=== PATIENT | female | born 1995 | race Caucasian/White ===

== ENCOUNTER 2020-08-06 13:58 | Outpatient (REF) | payer OTHER, SELFPAY ==
[2020-08-06 16:31] LABS: MANUAL DIFF FLAG NO
[2020-08-06 16:38] LABS: Basophils Percent Auto 0.5 % (0-2); Eosinophils Absolute Auto 0.1 X10*3/uL (0.0-0.4); Eosinophils Percent Auto 0.9 % (0-4); Hematocrit 41.4 % (37-47); Hemoglobin 13.4 g/dl (12.0-16.0); Imm Gran Abs Auto 0.01 X10*3/uL (0.00-0.03); Imm Gran Pct Auto 0.2 % (0.0-0.4); Lymphocytes Absolute Auto 2.3 X10*3/uL (1.2-4.9); Lymphocytes Percent Auto 35.6 % (20-40); Mean Corpuscular HGB Conc 32.4 g/dl (31.0-35.0); Mean Corpuscular Hemoglobin 26.8 pg (27.0-33.0); Mean Corpuscular Volume 82.8 fL (80-98); Mean Platelet Volume 10.2 fL (9.4-12.3); Monocytes Absolute Auto 0.5 X10*3/uL (0.1-1.2); Monocytes Percent Auto 7.8 % (2-11); Neutrophils Absolute Auto 3.6 X10*3/uL (2.0-8.3); Platelet Count 299 X10*3/uL (160-400); Red Cell Distribution Width 12.8 % (11.0-16.0); White Blood Count 6.6 X10*3/uL (4.8-10.8)
[2020-08-06 17:03] LABS: Alanine Aminotransferase 7 U/L (0-31); Anion Gap 13 (12-20); Aspartate Amino Transferase 14 U/L (5-31); Blood Urea Nitrogen 13 mg/dL (9-16); Calcium 9.5 mg/dL (8.4-10.2); Carbon Dioxide 24 mmol/L (22-29); Chloride 105 mmol/L (96-108); Cholesterol 168 mg/dL; Estimated Glomerular Filt Rate > 60; Glucose Fasting 88 mg/dL (60-99); HDL Cholesterol 47 mg/dL; LDL Cholesterol Calculated 110 mg/dl; Potassium 4.7 mmol/L (3.3-5.1); Sodium 137 mmol/L (135-145); Triglycerides 56 mg/dL
[2020-08-06 17:24] LABS: TSH reflex Free T4 0.45 uIU/mL (0.32-4.0); Vitamin D 25-OH Total 22.4 ng/mL (>30)
[2020-08-06 17:34] LABS: Vitamin B12 282 pg/mL (200-900)
== END 2020-08-06 13:59 | disposition home or self-care (01) ==
LOC: HO.HMGCLDS 13:58
PROVIDERS: PCP Internal Medicine; Visit Provider Internal Medicine
DX: Z00.00 Encounter for general adult medical examination without abnormal findings (principal); Z11.1 Encounter for screening for respiratory tuberculosis; J32.9 Chronic sinusitis, unspecified; R53.83 Other fatigue; R76.11 Nonspecific reaction to tuberculin skin test without active tuberculosis; I10 Essential (primary) hypertension; Z83.49 Family history of other endocrine, nutritional and metabolic diseases
CPT/HCPCS: 36415; 80048; 80061; 82306; 82607; 82746; 84443; 84450; 84460; 85025

== ENCOUNTER 2022-05-22 13:30 | Outpatient (REF) | payer OTHER, SELFPAY ==
[2022-05-22 16:50] LABS: MANUAL DIFF FLAG NO
[2022-05-22 16:54] LABS: Basophils Absolute Auto 0.1 X10*3/uL (0.0-0.2); Basophils Percent Auto 0.7 % (0-2); Eosinophils Absolute Auto 0.1 X10*3/uL (0.0-0.4); Eosinophils Percent Auto 1.3 % (0-4); Hematocrit 40.2 % (37.0-47.0); Hemoglobin 12.8 g/dl (12.0-16.0); Imm Gran Abs Auto 0.02 X10*3/uL (0.00-0.03); Imm Gran Pct Auto 0.3 % (0.0-0.4); Lymphocytes Absolute Auto 2.7 X10*3/uL (1.2-4.9); Mean Corpuscular HGB Conc 31.8 g/dl (31.0-35.0); Mean Corpuscular Hemoglobin 24.2 pg (27.0-33.0); Mean Corpuscular Volume 75.8 fL (80.0-98.0); Mean Platelet Volume 9.8 fL (9.4-12.3); Monocytes Absolute Auto 0.7 X10*3/uL (0.1-1.2); Monocytes Percent Auto 9.9 % (2-11); Neutrophils Absolute Auto 3.6 x10*3/uL (2.0-8.3); Neutrophils Percent Auto 49.8 % (45-73); Platelet Count 383 X10*3/uL (160-400); Red Cell Distribution Width 14.3 % (11.0-16.0); White Blood Count 7.2 X10*3/uL (4.8-10.8)
[2022-05-22 17:28] LABS: Alanine Aminotransferase 12 U/L (0-31); Anion Gap 12 (12-20); Aspartate Amino Transferase 19 U/L (5-31); Blood Urea Nitrogen 12 mg/dL (9-16); Calcium 9.6 mg/dL (8.4-10.2); Carbon Dioxide 26 mmol/L (22-29); Chloride 106 mmol/L (96-108); Cholesterol 173 mg/dL; Estimated Glomerular Filt Rate > 60; Glucose Fasting 86 mg/dL (60-99); HDL Cholesterol 52 mg/dL; LDL Cholesterol Calculated 103 mg/dl; Potassium 4.7 mmol/L (3.3-5.1); Sodium 139 mmol/L (135-145); Triglycerides 91 mg/dL
[2022-05-22 17:58] LABS: Folate 13.3 ng/mL (> or = 4.0); TSH reflex Free T4 1.15 uIU/mL (0.32-4.0); Vitamin B12 366 pg/mL (200-900); Vitamin D 25-OH Total 51.6 ng/mL (>30)
== END 2022-05-22 13:31 | disposition home or self-care (01) ==
LOC: HO.HMGCLDS 13:30
PROVIDERS: PCP Internal Medicine; Visit Provider Internal Medicine
DX: Z00.01 Encounter for general adult medical examination with abnormal findings (principal); R10.13 Epigastric pain; K80.50 Calculus of bile duct without cholangitis or cholecystitis without obstruction; Z83.49 Family history of other endocrine, nutritional and metabolic diseases
CPT/HCPCS: 36415; 80048; 80061; 82306; 82607; 82746; 84443; 84450; 84460; 85025

== ENCOUNTER 2025-01-01 11:20 | Outpatient (REF) | payer OTHER, SELFPAY ==
[2025-01-01 13:29] LABS: Hematocrit 39.3 % (37.0-47.0); Hemoglobin 12.9 g/dl (12.0-16.0)
--- OUTSIDE RECORDS SUMMARY | 2025-01-01 13:55 | XMS_ITS | Clinical Summary ---
Author Organization [facility] Address [address] [place] [address] Care Team Providers Care Manager Publishing Name Role Phone Montse Dillard PA-C Primary Care Provider [phone] Source Comments PLEASE NOTE, if this patient is a minor, it may be UNLAWFUL to discuss sensitive information that is contained in these records (such as FAMILY PLANNING, MENTAL HEALTH or SUBSTANCE ABUSE) with the minor patient's parent or other person without the patient's specific authorization.[facility] Allergies No known active allergies Medications pediatric multivitamin chewable tabletIndications :Routine or child health check Place 1 Tab into mouth, chew and swallow once daily. 30 Tab 5 3 Active ibuprofen (ADVIL,MOTRIN) 200 mg tablet Take 2 Tabs by mouth every 8 (eight) hours as needed for fever or pain. 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 Plantar wart 03/20/2015 Overview (04/15/2015): Seen by nursing informatics specialist 04/02/15 - s/p excision Dysmenorrhea 11/07/2012 Immune to hepatitis B 09/06/2012 Immune to varicella 09/06/2012 Immunizations Immunization Administration Dates Next Due Flu, Preservative Free 05/20/2016 HEP B, PED/ADOL ([id number]-PEDS) 09/06/2012 Hep A, Ped/adol, 2 Dose 02/02/2014,11/07/2012 IPV (IPOL) 10/07/2012,09/06/2012 Influenza Virus Vaccine (FLUMIST), Live Intranas al 02/14/2014,03/16/2013 MENINGOCOCCAL VACCINE,CONJUGATE (NON-INTERFACE) 09/06/2012 MMR (MMR II/Priorix) 10/07/2012,09/06/2012 PPD 07/13/2016,09/24/2014 TDAP 08/11/2016,09/06/2012 Td (adult), 5 Lf tetanus tox oid (Tenivac), preservative free 02/02/2014 Td (adult),2 Lf tetanus toxo id (TDVAX), preservative free 10/07/2012 Varicella (Varivax), Live Vaccine 09/06/2012 Family History Relation Name Status Comments Brother Alive Father Alive Mother Alive Sister 1 Alive Sister 2 Alive Social History Tobacco Use Types Packs/Day Years Used Date Smoking Tobacco: Never Alcohol Use Standard Drinks/Week Comments No 0 (1 standard drink = 0.6 oz pur e alcohol) Social Connections Answer Date Recorded Social Connections and Isolation 0 11/19/2018 Financial Resource Strain Answer Date R ecorded Financial Resource Strain 0 2018 Stress Answer Date Recorded Stress 0 11/19/2018 Physical Activity Answer Date Recorded Physical Activity 0 11/19/2018 Food Insecurity Answer Date Recorded Food 0 11/19/2018 Transportation Needs Answer Date Record ed Transportation 0 11/19/2018 Housing Stability Answer Date Recorded Housing 0 11/19/2018 Safety and Environment Answer Date Kimo rded Safety 0 11/19/2018 Utilities Answer Date Recorded Utilities 0 11/19/2018 Employment Answer Date Recorded Employment 0 11/19/2018 Comments No Sex and Gender Information Value Date Recorded Sex Assigned at Not on file Legal Sex Female 1:02 PM PDT Gender Identity Not on file Sexual Orientation Not on file Last Filed Vital Signs Vital Sign Reading Time Taken Comments Blood Pressure 90/60 05/20/2016 2:54 PM EST Pulse 62 05/20/2016 2:54 PM EST Temperature 37 C (98.6 F) 05/20/2016 2:54 PM EST Respiratory Rate 14 05/20/2016 2:54 PM EST Oxygen Saturation - - Inhaled Oxygen Concentration - - Weight 52.2 kg (115 lb) 05/20/2016 2:54 PM EST Height 154.9 cm (5' 1 ) 05/20/2016 2:54 PM EST Body Mass Index 21.73 05/20/2016 2:54 PM EST Plan of Treatment Not on file Insurance [employer] [place] [address] [facility] [employer] [place] [address] Care Teams Manager Publishing Relationship Specialty Start Date End Date Montse Dillard PA-C [address] [place] [address] PCP - General 05/24/18
--- OUTSIDE RECORDS SUMMARY | 2025-01-01 13:55 | XMS_ITS | Clinical Summary ---
Author Organization [address] Address [address] [place] [phone] Phone Care Team Providers Care Lacquer Sprayer Name Role Phone Elda Bowens MD Primary Care Provider Allergies No known active allergies Medications vit,myriam [id number] 27 mg iron- 1 mg tablet Take 1 tablet by mouth 1 (one) time each day. 90 each 2 4 02/29/20 25 Active famotidine (PEPCID) 20 mg tabletIndication s:Gastroesophage al reflux disease without esophagitis Take 1 tablet (20 mg total) by mouth 2 (two) times a day. 60 tablet 5 10/03/19 26 Active Additional Information Patient not taking.Reported on 11/04/2024 oxyCODONE (OXY-IR) 5 mg immediate release capsuleIndicatio ns:Encounter for staple removal Take 1 capsule (5 mg total) by mouth every 6 (six) hours if needed for severe pain. Max Daily Amount: 20 mg 7 capsule 5 Active Active Problems Problem Noted Date Diagnosed Date Endometritis 11/05/2024 S/P repeat low transverse 10/18/2024 SGA (small for gestational age) 09/11/2024 Overview (10/02/2024): 08/18/2024- Growth at 10%tile, AC at 19%tile- Normal dopplers. Will repeat in 3 weeks 09/08- Growth 8%tile, normal fluid, normal dopplers- repeat 3 weeks- weekly NST recommended- Scheduled 09/26/2024- Growth 14%tile, normal fluid and dopplers. BPP- 11/03, continue with weekly NST History of prior with IUGR Overview (09/11/2024): 28 week US scheduled for growth- Growth at 7%tile, AC at 19%tile- Normal doppler. Likely constitutional rather than true FGR Will repeat growth at 30 weeks. History of 2 sections 04/05/2024 Overview (10/09/2024): Does not want TBL Scheduled for repeat 10/17/24 at 8am Assessment & Plan (04/13/2024 4:40 PM EST): Repeat for 39 weeks. Consider discussing TL. Nausea 09/15/2022 Overview (02/22/2024): Starting to resolve. Resolved Problems Problem Noted Date Diagnosed Date Resolved Date Encounter for staple removal 10/22/2024 12/11/2024 Hx of section 10/17/202412/11 Acute cholecystitis 06/16/2024 06/17/19 25 care, subsequent pr egnancy in first trimester 04/05/2024 12/11/2024 Overview (10/02/2024): 1. [facility] site: [facility]: [address] [place] [address] ([phone]) 2. Delivery site: [facility] 3. Mobile Mommas: No 4. Dating criteria: LMP 5. Blood type: O+ 6. Genetic screening: Date: Result: Panorama: Low risk Horizon: Neg Nuchal: Scheduled- WNL Survey: WNL MSAFP: 6. GBS: Negative Date: 09/26 7. FOB name: Shabbir Ceballos [phone] 8. Plans A. Epidural or other pain management - B. Labor support identified - C. Tdap - Date: 08/14/2024 Flu - Date: D. Breast or Bottle feed: Both Breast and Bottle feeding E. Baby's name - F. Circumcision - 9. Hospital Course: Positive PPD 07/15/2016 06/16/2024 Plantar wart 03/20/2015 06/16/2024 Overview (06/16/2024): Seen by art therapy specialist 04/02/15 - s/p excision Dysmenorrhea 11/07/2012 06/16/2024 Encounters Date Type Department Care Team Description 12/11/2024 1:15 PM EDT Routine Obstetrics and Gynecology - [address] [phone] Yodit Solano CNM state (Primary Dx); control counseling; Breast feeding status of mother; Status post delivery 11/09/2024 1:15 PM EDT Routine Obstetrics & Gynecology - [address] [phone] Claudine Song CNM S/P repeat low transverse (Primary Dx); Visit for wound check 11/04/2024 9:44 PM EDT - 11/06/2024 9:56 AM EDT Hospital Encounter [address] [phone] Arianna De La Rosa MD Discharge Disposition: Home or Self Care 10/27/2024 [place] [facility] - [address] [phone] Yodit Solano CNM 10/22/2024 2:19 PM EDT - 10/22/2024 2:31 PM EDT Hospital Encounter [address] [phone] Gay Young MD Encounter for staple removal (Primary Dx) Discharge Disposition: Home or Self Care 10/17/2024 8:51 AM EDT Anesthesia Event [facility] - [address] [phone] Barry Lomax MD 10/17/2024 8:00 AM EDT - 10/17/2024 9:35 AM EDT Surgery [address] [phone] Gay Young MD SECTION [[id number] (CPT )] 10/17/2024 6:04 AM EDT - 10/19/2024 2:25 PM EDT Hospital Encounter [address] [phone] Arianna De La Rosa MD Bretta, Leigh, MD S/P repeat low transverse (Primary Dx); Hx of section Discharge Disposition: Home or Self Care 10/16/2024 1:00 PM EDT Routine Obstetrics and Gynecology - [address] [phone] SGA (small for gestational age) (Primary Dx); NST (non-stress test) reactive 10/09/2024 1:15 PM EDT Routine Obstetrics and Gynecology - [address] [phone] Yodit Solano CNM care, subsequent in third trimester (Primary Dx); History of 2 sections; 37 weeks gestation of ; NST (non-stress test) reactive 10/02/2024 1:30 PM EDT Routine Obstetrics and Gynecology - [address] [phone] Yodit Solano CNM care, subsequent in third trimester (Primary Dx); 36 weeks gestation of ; History of 2 sections; SGA (small for gestational age); NST (non-stress test) reactive; Gastroesophageal reflux disease without esophagitis from Last 3 Months Immunizations Immunization Administration Dates Next Due Tdap Tetanus diptheria acell ular pertussis (Boostrix; Adacel) 7yo and older 08/14/2024,01/22/2023,12/04/2021 Surgical History Surgery Date Site/Laterality Comments OTHER SURGICAL HISTORY 01/2021 PROCEDURE: MT PRTL HYMENECTOMY/REVJ HYMENAL RING; COMMENT: hymen removal by physician in [place] prior to marriage. 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 Endometritis 10/2024 s/p c-secton on 10/17/2024 Family History Medical History Relation Name Comments No Known Problems Brother No Known Problems Daughter 1 No Known Problems Father Other: dies of nataural causes Maternal Grandfather Hypertension Maternal Grandmother Hypertension Mother Other: from natural causes Paternal Grandf ather No Known Problems Paternal Grandmother No Known Problems Sister 1 No Known Problems Sister 2 Breast cancer Neg Hx Ovarian cancer Neg Hx Uterine cancer Neg Hx Relation Name Status Comments Brother Alive Daughter 1 Daughter 2 Alive Father Alive Maternal Grandfather Maternal Grandmother Alive Mother Alive Paternal Grandfather Paternal Grandmother Alive Sister 1 Alive Sister 2 Alive Social History Tobacco Use Types Packs/Day Years Used Date Smoking Tobacco: Never Smokeless Tobacco: Never Alcohol Use Standard Drinks/Week Comments Never 0 (1 standard drink = 0.6 oz pur e alcohol) Housing Instability Answer Date Recorde d Are you worried that in the next 2 months you may not have stable housing? No 10/18/2024 Food Access & Nutrition Answer Date Rec orded Do you have access to a vari ety of food including fruits and vegetables? Yes 10/18/2024 Health Literacy Answer Date Recorded How often do you need to hav e someone help you when you read instructions, pamphlets, or other written material from your doctor or pharmacy? Never 10/18/2024 Caregiver: How often do you need to have someone help you when you read instructions, pamphlets, or other written material from your doctor or pharmacy? Not on file 10/18/2024 Financial Risk Answer Date Recorded How hard is it for you to pa y for the very basics like food, housing, medical care, and air conditioning / heating? Not very hard 10/18/2024 Transportation Answer Date Recorded Has the lack of transportati on kept you from meetings, work, or from getting things needed for daily living? No Has the lack of transportati on kept you from medical appointments or from getting medications? No 10/18/2024 Social Isolation Answer Date Recorded How often do you feel lonely or isolated from th ose around you? Never 10/17/2024 Food Risk Answer Date Recorded Within the past 12 months we worried whether our food would run out before we got money to buy more. Never true 10/18/2024 Within the past 12 months th e food we bought just didn't last and we didn't have money to get more. Never true 10/18/2024 Dependent Care Answer Date Recorded Do you need help finding or paying for care for your loved ones. For example, child and family services worker or elderly care for an older adult? No 10/18/2024 Education Answer Date Recorded Do you think completing more education or training, like finishing a GED, going to college, or learning a trade, would be helpful for you? N/A 10/18/2024 Employment and Income Answer Date Recor ded During the last four weeks, have you been actively looking for work? No 10/18/2024 Living Situation Answer Date Recorded What is your living situation? Unrecognized valu e 10/18/2024 Interpersonal Safety Answer Date Record ed Physical Abuse Unrecognized value 11/04/2024 Verbal Abuse Unrecognized value 11/04/2024 Comments No Sex and Gender Information Value Date Recorded Sex Assigned at Not on file Legal Sex Female 9:39 AM EST Gender Identity Not on file Sexual Orientation Not on file Obstetrics History Para Term AB IAB SAB Ectopic Multiple Livin g Live Births 3 3 3 0 3 3 Date Outcome GA Total Labor Labor/2nd/3rd Weight Sex Type Anes PTL David A1 A5 Name Clin Term 3345 g (118 oz) F CS-LT ranv Spinal Livin g Complications:None,Breech pr esentation of fetus 2023 Term 2722 g (96 oz) F CS-LT ranv Spinal Livin g Complications:None 2024 Term 39w 0d 0h 01m 0h 01m 2770 g (97.7 oz) M CS-LT ranv Spinal Livin g 9 [address] Karan ward MD Complications:None Delivery Location:[facility] ([facility]) Summary Episode Dates Number of Fetuses Estimated Date of Delivery 02/29/2024 - Present (01/01/2025) 1 10/24/2024 (set by Grisel Bond RN on 04/05/2024 based on Last Menstrual Period on 01/18/2024 (Exact Date)) Dating Summary Based On KIRA GA Diff Last Menstrual Period on 01/18/2024 (Exact Date) 10/24/2024 Working Alternate KIAR Entry 10/24/2024 Same Comment:Date entered prior t o episode creation Overview and Plan :[facility] Delivery Plans Post-Delivery Plans Planned delivery method: Feedin g intentions:Breast and Formula Feeding Planned delivery location:[facility] Circumcis ion requested:Provider Performed Acceptable blood products:All Vitals Pregravid Weight Height TWG (As of 01/01/2025) Pregrav id BMI 1.524 m (60 ) Date GA Fund Present FHR Mvmt BP Weight Edema Alb Glu Ket Dil/ Eff/Sta 5 39w0d Inpatient data not displayed here. See encounter summary. 5 39w0d Inpatient data not displayed here. See encounter summary. 5 39w0d Inpatient data not displayed here. See encounter summary. Notes Progress Notes - Routine Pre talia - 12/11/2024 - GA:39w0d 12/11/2024 - 39w0d - Yodit Solano CNM Visit Encounter Date: 12/11/2024 Chief Complaint: Chief Complaint Patient presents with Care Subjective: Neeru Ugalde is a 29 y.o. who presents for visit. She is 7 weeks s/p repeat delivery. She is formula and breast feeding without difficulty. Lochia stopped. Has not yet had intercourse or menses. Mood is good, EPDS 0. Desires Coper IUD for contraception. was complicated by hx of previous and SGA. Review of Systems: As in HPI. All other systems reviewed and negative. Patient Active Problem List Diagnosis Nausea History of 2 sections History of prior with IUGR SGA (small for gestational age) S/P repeat low transverse Endometritis OB History Para Term AB Living 3 3 3 3 SAB IAB Ectopic Multiple Live Births 0 3 # Outcome Date GA Lbr Derick/2nd Weight Sex Type Anes PTL Lv 3 Term 10/17/24 39w0d 2770 g (97.7 oz) M CS-LTranv Spinal DAVID 2 Term 04/05/23 2722 g (96 oz) F CS-LTranv Spinal DAVID 1 Term 11/2021 3345 g (118 oz) F CS-LTranv Spinal DAVID Complications: Breech presentation of fetus Past Medical History: Diagnosis Date Acute cholecystitis 06/16/2024 Anemia Dysmenorrhea 11/07/2012 Endometritis 10/2024 s/p c-secton on 10/17/2024 Migraine Patient denies medical problems DX:Patient denies medical problems Plantar wart 03/20/2015 Seen by art therapy specialist 04/02/15 - s/p excision 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 Other Children: [address]:YES Pets:NO Occupation: stay at home mom FOB occupation: not working Smoker:NO Pt Ethnic Ba ckground:/White - [facility] FOB Ethnic Background:/White - [employer] Alberto Planned :YES Lives with: lives with mother, father, sisters, and brothers. (FOB/- Shabbir Diallocallie: currently still in [place]) Other Children: 0 [place] [address] system in [address]:YES Pets:NO Occupation: not working FOB occupation: Delivery in [place] Smoker:YES-vapes occasionally Pt Ethnic Background: FOB Ethnic Background:Tajik- Prior to Admission medications Medication Sig Start Date End Date Taking? Authorizing Provider vit,myriam [id number] 27 mg iron- 1 mg tablet Take 1 tablet by mouth 1 (one) time each day. 02/29/24 02/28/25 Yes Giovanna Steven MD famotidine (PEPCID) 20 mg tablet Take 1 tablet (20 mg total) by mouth 2 (two) times a day. Patient not taking: Reported on 11/04/2024 10/02/24 10/02/25 Yodit Solano CNM oxyCODONE (OXY-IR) 5 mg immediate release capsule Take 1 capsule (5 mg total) by mouth every 6 (six) hours if needed for severe pain. Max Daily Amount: 20 mg 10/22/24 Gay Young MD No Known Allergies Objective: Vitals: 12/11/24 1311 BP: 115/69 Weight: 65.3 kg (144 lb) Gen: Alert, cooperative. Well-appearing on today's exam Cardiovascular: regular rate and rhythm, no m/r/g Lung: clear to auscultation bilaterally, no wheezing, ronchi, normal respiratory effort Breast: Normal appearance, no masses or tenderness, no nipple retraction or dimpling bilaterally. No axillary or supraclavicular adenopathy Abdomen: scar well healed, C/D and well approximated. Abdomen soft, non-tender. No masses palpable, no organomegaly. Lymph: No inguinal lymphadenopathy. Extremities: no calf tenderness or edema, atraumatic without deformity Skin: Skin color, texture, turgor normal. No rashes or lesions Psych: Mood and affect appropriate. Pelvic: External Genitalia: Normal appearance, without lesions Vagina: Normal appearance. Mucosa is pink, normal rugae, no abnormal discharge. No lesions. Cervix: Normal appearance, without discharge or lesions. Uterus: Normal size and shape. Non-tender Adnexa: No adnexal masses, tenderness bilaterally. Assessment/Plan: 29 y.o. with: 1. Contraception-will return for Paragard IUD insertion. R/B reviewed, condoms until then. 2. Discussed nutrition, exercise, sexual activity, control methods, wood cabinetmaker care, S&S of PPD and referral information. 3. RTO for IUD insertion and AE in one year Yodit Solano CNM Progress Notes - Routine Pre talia - 11/09/2024 - GA:39w0d 11/09/2024 - 39w0d - Claudine Song CNM Neeru Boonekaren Pt present for 2 wks incision check She had repeat on 10/17/2024 Any complaints slight tenderness at site She was re-admitted to hosp on 11/04 for endometritis, started on abx and no longer breast feeding , because she needs to pump/dump. Not interested in re- establishing breast milk supply due to busy family . Denies any abd pain, erythema, abnormal discharge from incision Scant lochia, no vaginal discharge or foul odor. --She is breast feeding and bottle feeding with no issues. OB History Para Term AB Living 3 3 3 3 SAB IAB Ectopic Multiple Live Births 0 3 # Outcome Date GA Lbr Derick/2nd Weight Sex Type Anes PTL Lv 3 Term 10/17/24 39w0d 2770 g M CS-LTranv Spinal DAVID 2 Term 04/05/23 2722 g F CS-LTranv Spinal DAVID 1 Term 11/2021 3345 g F CS-LTranv Spinal DAVID Complications: Breech presentation of fetus ROS : GENERAL: Negative for malaise, significant weight loss and fever and No malaise, significant weight loss or fever RESPIRATORY: No cough, wheezing or shortness of breath CARDIOVASCULAR: No chest pain, leg swelling or palpitations BREAST: no lumps, discharge, pain or change in skin GI: No abdominal discomfort, blood in stools or black stools : No dysuria, frequency or incontinence QUALIFICATIONS EXAMINER: SEE HPI and No abnormal vaginal bleeding or abnormal vaginal discharge. MUSCULOSKELETAL: Negative for joint pain or swelling, back pain, and muscle pain., No joint pain or swelling, back pain, or muscle pain. SKIN: No lesions, rash or itching PSYCH: No sleep disturbance, mood disorder or recent psychosocial stressors. NEURO: No persistent headache, syncope, seizures, weakness or numbness Visit Vitals LMP 01/18/2024 (Exact Date) OB Status Recent Smoking Status Never ----incision D/C/I , Steris intact ----Abd soft, NT, ND w no rebound or guarding. APPEARANCE: No apparent distress cooperative. LUNG: Normal respiratory effort NEURO: Awake, alert and oriented x 3 with symmetrical reflexes SKIN: Skin color, texture, turgor normal. No rashes or lesions. Encounter Diagnoses Name Primary? S/P repeat low transverse Yes Visit for wound check Plan: Cont restrictions Newspaper Carrier on warning signs to call. F/U PP visit Claudine Song CNM Progress Notes - Hospital En counter - 10/22/2024 - GA:39w0d 10/22/2024 - w - Gay Young MD Neeru is a 28-year-old G3, P3 who is status post section on October 17, 2024. She presents to triage today for removal of her galdino. She states she is doing well although her incision does burn at its lateral aspects she is also requesting a couple more oxycodone. O: Awake alert orientated no acute distress Respirations even and unlabored Abdomen soft nontender nondistended Incision clean dry and intact, galdino removed without difficulty Steri-Strips placed Lower extremities nontender no edema A/P 28-year-old young lady who is postop day #5 status post section who presents for removal of her galdino. She is stable for discharge. An additional prescription for #7 oxycodone sent to pharmacy. Patient to follow-up as previously scheduled with [facility] Progress Notes - Hospital En counter - 10/19/2024 - GA:39w0d 10/18/2024 - 39w0d - Gay Young MD Progress Note Subjective Neeru Ugalde is a 28 y.o., , with an Estimated Date of Delivery of 10/24/24, who delivered at 39w0d gestation and is now 1 days . Patient's delivery was , Low Transverse, with the following labor and delivery complications, None. Her bleeding is Scant.The patients BP have been running low since surgery, she is clinically stable and appears to run a low BP as baseline. The patient denies emotional concerns today. The patient's pain is moderatly controlled with current medications, is ambulating well, is tolerating a Adult diet [facility]; General; Regular, is passing flatus, and has not had a BM. Patient is . Patient reports no breast or nursing problems. Objective Allergies: Patient has no known allergies. Recent Vital Signs: 92/52 76 36.6 C (97.8 F) 18 152.4 cm (60 ) 70.8 kg (156 lb) Body mass index is 30.47 kg/m . BP & Temp Min/Max Last 24 Hours: BP Min: 86/59 Min taken time: 10/17/24 1900 Max: 103/63 Max taken time: 10/17/24 1616 Temp Av.5 C (97.7 F) Min: 36.3 C (97.3 F) Min taken time: 10/17/24 1616 Max: 36.9 C (98.4 F) Max taken time: 10/18/24 0111 Intake/Output: Intake/Output Summary (Last 24 hours) at 10/18/2024 0711 Last data filed at 10/17/2024 2000 Gross per 24 hour Intake 800 ml Output 2045 ml Net -1245 ml Physical Exam: Awake alert and orientated Resp even and unlabored Abd soft, approp tender, ND Dressing CDI Ext NT Lab Results: Recent Results (from the past 48 hours) Type and screen Collection Time: 10/17/24 7:14 AM Result Value Ref Range ABO Group O Rh Type Positive Antibody Screen Negative Treponema pallidum antibody with reflex to RPR and particle agglutination Collection Time: 10/17/24 7:14 AM Result Value Ref Range T. Pallidum Antibodies Negative Negative CBC auto differential Collection Time: 10/17/24 7:14 AM Result Value Ref Range WBC 10.5 4.8 - 10.8 K/mcL RBC 4.40 3.80 - 4.80 M/mcL Hemoglobin 11.8 11.5 - 16.0 g/dL Hematocrit 36.5 35.0 - 47.0 % MCV 83.0 79.0 - 98.0 FL MCH 26.8 (L) 27.0 - 32.0 pcg MCHC 32.3 32.0 - 37.0 g/dL RDW 15.5 (H) 11.0 - 15.0 % Platelets 209 130 - 400 K/mcL MPV 9.5 7.0 - 11.0 FL NRBC 0.0 <1.0 % NRBC Absolute 0.00 <0.10 K/mcL Neutrophils Relative 68.3 % Lymphocytes Relative 21.3 % Monocytes Relative 8.6 % Eosinophils Relative 0.9 % Basophils Relative 0.3 % Immature Granulocytes Relative 0.6 % Neutrophils Absolute 7.19 (H) 1.50 - 7.00 K/mcL Lymphocytes Absolute 2.25 1.00 - 5.00 K/mcL Monocytes Absolute 0.91 0.20 - 1.00 K/mcL Eosinophils Absolute 0.10 0.00 - 0.50 K/mcL Basophils Absolute 0.03 0.00 - 0.20 K/mcL Immature Granulocytes Absolute 0.06 (H) 0.00 - 0.03 K/mcL Assessment/Plan Principal Problem: Hx of section Brief Delivery Details: section delivery Routine postop and care. Patient is currently breastfeedingThe patient's blood type is O Positive. The baby's blood type is O Positive. Rhogam is not indicated. -Advance care as tolerated -Encourage ambulation -Remove Drsg today after shower course: no complications Assessment: doing well care plan: See orders and Patient Instructions Progress Notes - Routine Pre talia - 10/16/2024 - GA:38w6d 10/16/2024 - 38w6d - Jenifer Benavides CNM OB NST SGA Baseline: 145 Variability: moderate Accels: 2 in 20mins up to 40mins Decels: Absent Ctx: none Findings: reactive Follow-up: weekly Jenifer Benavides CNM Progress Notes - Routine Pre - 10/09/2024 - GA:37w6d 10/09/2024 - 37w - Yodit Solano CNM OB Visit: Vitals BP: 96/69 Weight: 71.6 kg (157 lb 12.8 oz) Assessment Heart Rate: 130 Fundal Height (cm): 36 cm Movement: Present Presentation: Cephalic Vaginal Drainage Leaking Fluid: No 28 y.o. old female at 37w6d. Doing well. Appropriate FM. No LOF/VB some irregular contractions. Much improvement of reflux with Pepcid. Her only new concern is none. Otherwise healthy . Her BP is reviewed and is Normal. This patient does not require a urine drug screen. NST reactive. She is scheduled for repeat on 10/17. She will come in next Wednesday for NST. Signs and symptoms of labor reviewed including reasons to call triage. Problem List reviewed and updated. RTO 1 weeks. NST- 130/mod/+accels, no decels No contractions Reactive Repeat in 1 week Yodit Solano CNM on 10/09/2024 at 5:45 PM EDT Progress Notes - Routine Pre talia - 10/02/2024 - GA:36w6d 10/02/2024 - 36wd - Yodit Solano CNM OB Visit: Vitals BP: 107/70 Weight: 70.6 kg (155 lb 9.6 oz) Assessment Heart Rate: 135 Fundal Height (cm): 35 cm Movement: Present Presentation: Cephalic Vaginal Drainage Leaking Fluid: No 28 y.o. old female at 36w6d. Doing well. Appropriate FM. No LOF/VB/cramping. Her only new concern is acid reflux- tums not helping. Reviewed Pepcid and diet restrictions. Otherwise healthy . Her BP is reviewed and is Normal. Tdap was offered and not indicated at today's visit. This patient has received Tdap during this . This patient does not require a urine drug screen. This patient's VTE risk status is low. GBS is negative. NST today reactive. Has repeat scheduled for 10/16. Recent normal growth at 14%tile, normal dopplers. Signs and symptoms of labor reviewed including reasons to call triage. Problem List reviewed and updated. RTO 1 weeks. NST- Baseline- 135 Variability- Mod Accels- Positive Decels- none Ctx- irregular Results- Reactive Repeat weekly Yodit Solano CNM on 10/02/2024 at 2:52 PM EDT Progress Notes - Routine Pre - 09/26/2024 - GA:36w0d 09/26/2024 - 36w0d - Yodit Solano CNM OB Visit: Vitals BP: 92/70 Weight: 69.9 kg (154 lb) Assessment Heart Rate: 140 Fundal Height (cm): 34 cm Movement: Present Presentation: Cephalic Vaginal Drainage Leaking Fluid: No 28 y.o. old female at 36w0d. Doing well. Appropriate FM. No LOF/VB/cramping. Her only new concern is has occasional LE pain to bilateral legs. No swelling or discoloration on exam today. Encouraged increase magnesium and hydration in diet. Has this pain intermittently for past few months. Had normal bilateral LE dopplers- comfort measures reviewed. Will continue to monitor- warning signs reviewed and reasons to call back. Taking PNV. She is being followed for SGA- has growth Scan scheduled for today. NST today is reactive. Otherwise healthy . Her BP is reviewed and is Normal. Tdap was offered and not indicated at today's visit. This patient has received Tdap during this . This patient does not require a urine drug screen. GBS collected. This patient's VTE risk status is low. Signs and symptoms of labor reviewed including reasons to call triage. Needs repeat scheduled- will await for growth US to verify if delivery at 39 weeks is ok or if needs sooner. Problem List reviewed and updated. RTO 1 weeks. Patient is planning to breast feed. Benefits of breast feeding were discussed at this visit. NST- Baseline- 140, mod variability, +accels, variable x1, contractions none Reactive NST with 1 variable decel with quick recovery to baseline. BPP and growth scan today. Yodit Solano CNM on 09/26/2024 at 1:58 PM EDT Progress Notes - Routine Pre talia - 09/20/2024 - GA:35w1d 09/20/2024 - 35w1d - Jenifer Benavides CNM OB NST SGA Baseline: un able to interpret Variability: moderate Accels: un able to interpret Decels: un able to interpret Ctx: none Findings: indeterminant Follow-up: stat bpp ordered Jenifer Benavides CNM Progress Notes - Routine Pre - 09/11/2024 - GA:33w6d 09/11/2024 - 33w6d - Yodit Solano CNM OB Visit: Vitals BP: 120/71 Weight: 69.9 kg (154 lb) Assessment Heart Rate: 150 Fundal Height (cm): 32 cm Movement: Present Presentation: Cephalic Vaginal Drainage Leaking Fluid: No 28 y.o. old female at 33w6d. Doing well. Appropriate FM. No LOF/VB/or contractions. Her only new concern is None. Taking PNV. Was feeling sick to her stomach this morning. Otherwise healthy . Recent growth US on 09/06- baby was at 8%tile, AC at 16%tile, normal doppler, normal fluid. Will repeat growth in 3 weeks. Needs weekly NST per [facility] recommendations. NST today non reactive. Her BP is reviewed and is Normal. This patient does not require a urine drug screen. Needs repeat scheduled for 39 weeks. Signs and symptoms of labor reviewed including reasons to call triage. Problem List reviewed and updated. RTO 2 weeks for SOPHIA and weekly for NST. NST Baseline- 140-150 Accels- none Decels- none Ctx- None Results- Non reactive Recommendation- BPP ordered. Results pending. Yodit Solano CNM on 09/11/2024 at 5:27 PM EDT Progress Notes - Routine Pre - 08/14/2024 - GA:29w6d 08/14/2024 - 29w6d - Yodit Solano CNM OB Visit: Vitals BP: 107/68 Weight: 69.9 kg (154 lb) Assessment Heart Rate: 140 Fundal Height (cm): 29 cm Movement: Present Vaginal Drainage Leaking Fluid: No 28 y.o. old female at 29w6d. Doing well. Appropriate FM. No LOF/VB/cramping. Her only new concern is none. Had a recent growth US that demonstrated normal doppler and 7th %tile but AC at 19%tile. She has repeat growth US on 08/18. Otherwise healthy . Her BP is reviewed and is Normal. Tdap was offered and accepted. This patient has not received Tdap during this . This patient has received syphilis testing during this . Labs pending. This patient does not require a urine drug screen. Desires Tubal: No . Signs and symptoms of labor reviewed including reasons to call triage. Problem List reviewed and updated. RTO 4 weeks. [place] Depression Scale: In the Past 7 Days I have been able to laugh and see the funny side of things.: As much as I always could I have looked forward with enjoyment to things.: As much as I ever did I have blamed myself unnecessarily when things went wrong.: No, never I have been anxious or worried for no good reason.: No, not at all I have felt scared or panicky for no good reason.: No, not much Things have been getting on top of me.: No, most of the time I have coped quite well I have been so unhappy that I have had difficulty sleeping.: Not at all I have felt sad or miserable.: No, not at all I have been so unhappy that I have been crying.: No, never The thought of harming myself has occurred to me.: Never [place] Depression Scale Total: 2 Yodit Solano CNM on 08/14/2024 at 2:10 PM EDT Progress Notes - Routine Pre talia - 07/13/2024 - GA:25w2d 07/13/2024 - 25w2d - Yodit Solano CNM OB Visit: Vitals BP: 99/69 Weight: 68.9 kg Assessment Heart Rate: 150 Fundal Height (cm): 25 cm Movement: Present Vaginal Drainage Leaking Fluid: No 28 y.o. old female at 25w2d. Doing well. Pos FM. No LOF/VB/cramping. Her only new concern is None. Taking PNV. Otherwise healthy . Her BP is reviewed and is Normal. She does not require a urine drug screen. 28 weeks labs ordered. She has 28 week growth US. Signs and symptoms of labor reviewed including reasons to call triage. Problem List reviewed and updated. RTO 4 weeks. Patient is planning to breast feed. Benefits of breast feeding were discussed at this visit. Yodit Solano CNM on 07/13/2024 at 1:43 PM EDT Progress Notes - Routine Pre talia - 06/14/2024 - GA:21w1d 06/14/2024 - 21w1d - Yodit Solano CNM OB Visit: Vitals BP: 118/70 Weight: 67.1 kg (148 lb) Assessment Heart Rate: 150 Fundal Height (cm): 20 cm Movement: Present Vaginal Drainage Leaking Fluid: No 28 y.o. old female at 21w1d. Doing well. Good FM. No LOF/VB/cramping. Her only new concern is continues to experience bilateral calf pain, pulsing sensation- worst at night time. No discoloration to LE, no varicose veins. Normal pedal pulses. Will send for BLE dopplers to rule out DVT and if all normal she can use compression stockings. She also reports right sciatica pain that radiates down her leg. Will order PT referral. Otherwise healthy . FAS done today and pending. Her BP is reviewed and is Normal. She does not require a urine drug screen. Signs and symptoms of labor reviewed including reasons to call triage. Problem List reviewed and updated. RTO 4 weeks. Yodit Solano CNM on 06/14/2024 at 3:39 PM EDT Progress Notes - Routine Pre talia - 05/15/2024 - GA:16w6d 05/15/2024 - wd - Yodit Solano CNM OB Visit: Vitals BP: 101/65 Weight: 66.8 kg (147 lb 3.2 oz) Assessment Heart Rate: 150 Movement: Present Vaginal Drainage Leaking Fluid: No 28 y.o. old female at 16w6d. Doing well. Positive FM. No LOF/VB/ctx. Some groin pain and low back pain. Pain to BLE at night time, Tylenol helps. Some acid reflux, not taking anything for this. We reviewed comfort measures for all. LE with no edema, discoloration or pain on exam. Pos pedal pulses. Taking PNV. Otherwise healthy . Her BP is reviewed and is Normal. FH- 2fb below U- S=D, FHT- 150. Aneuploidy screening reviewed; it is Normal. MSAFP ordered. She does not require a urine drug screen. Has upcoming FAS. Signs and symptoms of labor reviewed including reasons to call triage. Problem List reviewed and updated. RTO 4 weeks. Yodit Solano CNM on 05/15/2024 at 4:49 PM EST Progress Notes - Initial Pre talia - 04/13/2024 - GA:12w2d 04/13/2024 - 12w2d - Giovanna Jones MD OB 12 week appt IP: S: Neeru is a 28 y.o. year old here for IP visit at 12 2/7 weeks. Her is planned. She and the father of the baby are happy. Patient's last menstrual period was 01/18/2024 (exact date). She is certain of her LMP with regular cycles. is currently dated by LMP only. US today after this appt. Having a boy. She is feeling ok. She is no drinking much water. Trying. Gets dry. Cramps in legs at night. N/V has stopped. She denies vaginal bleeding or cramping. Ongoing back pain. Had throughout last and between. O: Blood pressure 106/74, pulse 80, resp. rate 16, weight 66.2 kg (146 lb), last menstrual period 01/18/2024. See OB physical and labs. Vitals BP: 106/74 Weight: 66.2 kg (146 lb) Assessment Heart Rate: 150 Fundal Height (cm): 12 cm Pap 2021 neg No results found for: ABORH Lab Results Component Value Date RH Positive 04/05/2024 A: at 12w2d weeks gestation. 1. care, subsequent in first trimester 2. Screening for cervical cancer 3. Screen for STD (sexually transmitted disease) 4. History of 2 sections P: Pap obtained today. Genprobe obtained today. Oriented to THoNE MG and anticipated course. Discussed collaborative practice and [facility] delivery. Reviewed healthy eating and normal weight gain in . Encouraged patient to push PO fluids. Counseled about warning signs of the first trimester and how to contact caregivers non medical provider. Discussed the benefits of breast feeding and strongly encouraged to consider this. Counseled regarding the diagnosis of anomalies. She was offered a referral to maternal medicine for nuchal lucency/Cozad testing. She already accepted the referral. RTO 4 weeks. The patient does not require anesthesia consult. This patient's VTE risk status is low. [place] Depression Scale: In the Past 7 Days I have been able to laugh and see the funny side of things.: As much as I always could I have looked forward with enjoyment to things.: As much as I ever did I have blamed myself unnecessarily when things went wrong.: Not very often I have been anxious or worried for no good reason.: No, not at all I have felt scared or panicky for no good reason.: No, not at all Things have been getting on top of me.: No, most of the time I have coped quite well I have been so unhappy that I have had difficulty sleeping.: Not at all I have felt sad or miserable.: No, not at all I have been so unhappy that I have been crying.: No, never The thought of harming myself has occurred to me.: Never [place] Depression Scale Total: 2 [place] SCREENING CHARGE (Clinic Only): [id number] Giovanna Steven MD on 04/13/2024 at 4:40 PM EST Progress Notes - Clinical [place] pport - 04/05/2024 - GA:11w1d 04/05/2024 - 11w1d - Grisel Bond RN Neeru Ugalde is a 28 y.o. old female at 11w1d. This is Planned. The patient feels happy about the . The FOB is supportive. Patient's last menstrual period was Patient's last menstrual period was 01/18/2024 (exact date). (exact date)., which would make her currently 11w1d with an Estimated Date of Delivery: 10/24/24. She is certain of her date. An ultrasound has not been ordered to confirm dating Patient has significant history of: (classical vs low transverse) OB Past Medical History: Have you had or do you currently have: Diabetes? No Hypertension? No Heart disease, Mitral valve Prolapse, or Rheumatic fever? No An Autoimmune disease such as Lupus or Rheumatoid Arthritis? No Epilepsy, Seizures, or Spells? No Migraine Headaches? Not migraines but headaches-taking tylenol Stroke or loss of function or sensation? No Additional Questions: Have you ever been treated for anxiety and/or depression? No Are you having problems with crying spells or loss of self-esteem? No Have you ever required psychiatric care? No Have you ever had hepatitis, liver disease or jaundice? No Have you ever been treated for blood clots in your veins, deep venous thrombosis, inflammation in the veins, thrombosis, phlebitis, pulmonary embolism or varicosities? No Have you had excessive bleeding after surgery or dental work? No Do you bleed more than other women after a cut or scratch? NO Do you have a history of anemia? Yes-with previous Have you ever had Thyroid problems or taken Thyroid medications? No Do you have any other Endocrine Problems (ie. PCOS)? No Have you ever been in a major accident or suffered serious trauma? No Within the last year, has anyone hit, slapped, kicked or otherwise hurt you? No In the last year, has anyone forced you to have sex when you didn't want to? No Do you feel safe at home? Yes Have you ever received a blood transfusion? No Would you refuse a blood transfusion if a doctor judged to be medically necessary? No Would you rather than receive a blood transfusion? No If you answered yes to the above questions, is this for sikh reasons? No Do you know what your blood type is or if you are Rh Negative? No Have you ever had abnormal antibodies in your blood? No Have you ever had asthma? No Have you every had Tuberculosis? No Have you ever had any breast problems? No Have you ever breast fed? No Have you ever had any gynecological surgical procedures such as cervical conization, LEEP procedure, Laser treatment, cryosurgery of the cervix or dilation and curettage, etc? No Have you had any other surgical procedures?YES- gallbladder surgery Have you ever been hospitalized overnight for a non-surgical reason excluding normal delivery? No Have you ever had anesthesia complications? No Have you ever had an abnormal pap smear? No Do you have a history of abnormalties of the uterus? No Did your mother take DIONISIO or any other hormones when she was with you? No Did it take more than one year to become ? No Have you ever been evaluated or treated for infertility? No Is there a history of medical problems in your family which you feel might adversely affect your health or ? No Do you have any other problems we have not asked you about which you feel may be important for us to know for this ? No Do you currently have any of the following symptoms since your last menstrual period: Abdominal pain, blood in the stool or urine, chest pain, shortness of breath, coughing or vomiting up blood, your heart racing or skipping beats, nausea and/or vomiting, pain on urination, or vaginal discharge or vaginal bleeding? Yes- abdominal pain, urgency pressure to urinate-urine culture ordered OB Infection History: Do you object to being tested for Hepatitis B? No Do you object to being tested for HIV? No Do you feel that you are at high risk for coming contact with the AIDS virus? No Have you ever been treated for tuberculosis? No Have you ever received the BCG vaccine? No Have you ever had a positive skin test for Tuberculosis? No Do you live with someone who has Tuberculosis? No Have you ever been exposed to Tuberculosis? No Do you have Genital Herpes? No Does your partner have Genital Herpes? No Have you had a rash or viral illness since your last period? No Have you ever had Gonorrhea, Chlamydia, Syphilis, Venereal Warts, Trichomoniasis, Pelvic Inflammatory Disease (PID) or any other sexually transmitted disease? No Do you know if you are a Group B Streptococcus Carrier? No Did you have the Chicken Pox/Varicella? Yes Were you vaccinated against Chicken Pox/Varicella? No Have you had any other infectious diseases? No Neeru Ugalde has been instructed on the following: random urine drug screening and an initial urine drug screen has been ordered. Neeru Ugalde has also been informed of the remote recruiter provider recommendation for first trimester nuchal lucency testing to be performed during her . Neeru Ugalde has also been made aware of the time sensitive nature for this testing to be completed. . The patient now has a gestational age of 11w1d. The patient would be due for this testing prior to 14 weeks gestation which would be on 04/25/2024. Nuchal scheduled 04/13/2024 at 300pm. Ethnicity Based Genetic Testing has been reviewed and the [facility] information sheet has been provided to the patient in their After Visit Summary. The patient was also advised that genetic testing may not be covered by all insurances. The patients states that they understand this information. The patient states that she has not had the genetic screening for Horizon 14 done in the past during a previous . The patient has agreed that she does want genetic testing for Horizon 14 The following Labs have been ordered: Obstetric Panel, HIV with verbal Consent, Urine Culture, Panorama without gender, and Horizon 14 panel She is aware that her insurance may or may not cover Panorama and/or Horizon 14 test and discussed [facility] only [facility] for test(s) - info given today in her after visit summary . She would like to proceed with testing. Electronically signed by: Grisel Bond RN 04/05/24 2:43 PM EST Progress Notes - Clinical [place] pport - 02/29/2024 - GA:6w0d 02/29/2024 - 6w0d - Chavo Montoya RN Positive test back office LMP date: 01/18/24 EGA: 6w0d EDC: 10/24/24 Current medication list reviewed. none Allergies: NKA Pharmacy: [facility] Any current medical problems?: None Any previous complications?: C/S 2021 and 2023 uncomplicated (1st send prescription for Aspirin 81mg 1 tab po daily if between 6 week - 13w6d gestation. If BMI 30 or greater, CHTN, Hx Pre-E. Twins: can wait till 12 weeks to order as will need 162mg daily) Patient is not currently being treated for insulin dependent diabetes. Patient is not currently being treated for hypertension. Patient does not a history of ectopic , does not a history of miscarriage, and does not a history of termination. Appointment is to be made with MD prior to OB work up if pt is currently being treated for hypertension. Patients currently being treated for diabetes should establish care with a [facility] provider. OK to see CNM for IP visit? No Pre- Weight (if known): 146lb Height: 5'0 Pre- BMI: 28.51 Recommended weight gain: ?[place] BMI 25.0 to 29.9 kg/m2 (overweight) - Weight gain 15 to 25 lb (7.0 to 11.5 kg) Plans on repeat section for delivery (BMI equal or greater than 50 prior to or at 28 weeks needs to deliver at [facility]). Pre BMI of 50 or more should continue to be transferred to [facility] prior to establishing care. Pt was counseled that we only deliver at [facility]. She is aware that if she would like to deliver at [facility] will need to establish care with a [facility] provider. Schedule Workup for 10 weeks: In Person scheduled 03/30/24 @ 2pm Schedule IP at 12 weeks with appropriate provider: scheduled 04/13/24@1pm Warning signs of vaginal bleeding and pelvic pain were reviewed. The patient was advised to call the office, day or night, if these symptoms occur. Patient instructions relating to nausea and vomiting in the 1st trimester, what to avoid in (alcohol, drugs, smoking, environmental exposures), dietary and medication restrictions and self care for colds and flu given to patient. A prescription for Vitamins Plus will be sent to the pharmacy. The patient understands all instructions and is in agreement with plan of care. Last Filed Vital Signs Vital Sign Reading Time Taken Comments Blood Pressure 115/69 12/11/2024 1:11 PM EDT Pulse 53 11/06/2024 7:45 AM EDT Temperature 36.4 C (97.5 F) 11/06/2024 7:45 AM EDT Respiratory Rate 16 11/06/2024 7:45 AM EDT Oxygen Saturation 100% 11/06/2024 7:45 AM EDT Inhaled Oxygen Concentration - - Weight 65.3 kg (144 lb) 12/11/2024 1:11 PM EDT Height 152.4 cm (5') 11/04/2024 10:01 PM EDT Body Mass Index 28.12 11/04/2024 10:01 PM EDT Plan of Treatment Upcoming Encounters Date Type Department Care Team (Late st Contact Info) Description 01/23/2025 1:15 PM EDT Procedure visit Obstetrics and Gynecology - [address] [phone] Yodit Solano, [facility] [address] [place], [place] Scheduled Procedures Name Priority Associated Diagnoses Date/Ti me SECTION Hx of section Health Maintenance Due Date Last Done Comments Hepatitis B Vaccines (2 of 3 - 3-dose series) 10/04/2012 09/06/2012 IPV Vaccines (3 of 3 - 4-dose series) 04/09/2013 10/07/2012, 09/06/2012 Hepatitis A Vaccines (2 of 2 - 2-dose series) 08/02/2014 02/02/2014, 11/07/2012 HPV Vaccines (1 - 3-dose SCDM series) 2021 Depression Screening 03/29/2024 COVID-19 Vaccine ( season) 2024 Influenza Vaccine (#1) 2024 9, 05/20/2016, 02/14/2014, Additional history exists Social Influencers of Health Screening 10/18/2025 10/18/2024 Cervical Cancer Screening: HPV 04/13/2029 04/13/2024 DTaP,Tdap,and Td Vaccines (8 - Td or Tdap) 08/14/2034 08/14/2024, 01/22/2023, 12/04/2021, Additional history exists RSV Immunization Adult Patients (1 - 1-dose 75+ series) 2069 Meningococcal ACWY Vaccine Completed 09/06/2012 Varicella Vaccines Aged Out 09/06/2012 No longer eligible based on patient's age to complete this topic MMR Vaccines Completed 10/07/2012, 09/06/2012 HIV Screening Completed 04/05/2024, 09/16/2022 Hepatitis C Screening Completed 04/05/2024, 023 HIB Vaccines Aged Out No longer eligi ble based on patient's age to complete this topic Meningococcal B Vaccine Aged Out No l onger eligible based on patient's age to complete this topic Pneumococcal Vaccine: Pediatrics (0 to 5 Years) and At-Risk Patients (6 to 49 Years) Aged Out No longer eligible based on patient's age to complete this topic RSV Immunization Patients Under 20 months Aged Out No longer eligible based on patient's age to complete this topic Procedures Procedure Name Priority Date/Time Associated Diagnosis Comments CBC WITH AUTO DIFFERENTIAL STAT 11/06/2024 6:29 AM EDT CBC AND DIFFERENTIAL STAT 11/06/2024 6:29 AM EDT SST - GOLD Routine 11/06/2024 6:27 AM EDT EXTRA TUBES Routine 11/06/2024 6:[address] ABDOMEN PELVIS W CONTRAST STAT 11/05/2024 2:06 AM EDT [id number], FLU A AND B QUALITATIVE RT-PCR, INTERNAL LAB Routine 11/04/2024 11:24 PM EDT XR CHEST 1 VIEW STAT 11/04/2024 11:18 PM EDT [place] URINE CULTURE TUBE STAT 11/04/2024 11:07 PM EDT URINALYSIS WITH REFLEX MICROSCOPIC AND CULTURE STAT 11/04/2024 11:07 PM EDT URINALYSIS WITH REFLEX MICROSCOPIC AND CULTURE STAT 11/04/2024 11:07 PM EDT CULTURE URINE STAT 11/04/2024 11:07 PM EDT CBC WITH AUTO DIFFERENTIAL STAT 11/04/2024 10:59 PM EDT COMPREHENSIVE METABOLIC PANEL STAT 11/04/2024 10:59 PM EDT TYPE AND SCREEN STAT 11/04/2024 10:59 PM EDT CBC AND DIFFERENTIAL STAT 11/04/2024 10:59 PM EDT CULTURE BLOOD Routine 11/04/2024 10:59 PM EDT EXTERNAL ULTRASOUND REPORT 10/20/2024 COMPLETE BLOOD COUNT Routine 10/18/2024 5:08 PM EDT OXYGEN THERAPY, ADULT Routine 10/18/2024 8:02 AM EDT ANESTHESIA SPINAL BLOCK Routine 10/17/2024 8:55 AM EDT MT DELIVERY ONLY 10/17/2024 8:52 AM EDT S/P repeat low transverse Case Notes Repeat c/s CBC WITH AUTO DIFFERENTIAL STAT 10/17/2024 7:14 AM EDT TREPONEMA PALLIDUM ANTIBODY WITH REFLEX TO RPR AND PARTICLE AGGLUTINATION STAT 10/17/2024 7:14 AM EDT TYPE AND SCREEN STAT 10/17/2024 7:14 AM EDT CBC AND DIFFERENTIAL STAT 10/17/2024 7:14 AM EDT HPV WITH REFLEX GENOTYPE Routine 04/13/2024 1:48 PM EST Screening for cervical cancer HEPATITIS C ANTIBODY Routine 04/05/2024 3:21 PM EST care, subsequent , first trimester HIV 1, 2 ANTIBODY, P24 ANTIGEN WITH REFLEX TO DIFFERENTIATION Routine 04/05/2024 3:21 PM EST care, subsequent , first trimester from Last 3 Months or Most Recently Relevant to Health Maintenance Results * (ABNORMAL) CBC auto differential (11/06/2024 6:29 AM EDT) Only the most recent of3 resultswithin the time period is included. WBC 6.7 4.8 - 10.8 K/mcL LAB HEMETOLOGY METHOD 11/06/2024 6:40 AM [facility] RBC 5.00(H) 3.80 - 4.80 M/mcL LAB HEMETOLOGY METHOD 11/06/2024 6:40 AM [facility] Hemoglobin 13.0 11.5 - 16.0 g/dL LAB HEMETOLOGY METHOD 11/06/2024 6:40 AM [facility] Hematocrit 41.3 35.0 - 47.0 % LAB HEMETOLOGY METHOD 11/06/2024 6:40 AM [facility] MCV 82.1 79.0 - 98.0 FL LAB HEMETOLOGY METHOD 11/06/2024 6:40 AM [facility] MCH 25.8(L) 27.0 - 32.0 pcg LAB HEMETOLOGY METHOD 11/06/2024 6:40 AM [facility] MCHC 31.5(L) 32.0 - 37.0 g/dL LAB HEMETOLOGY METHOD 11/06/2024 6:40 AM [facility] RDW 13.9 11.0 - 15.0 % LAB HEMETOLOGY METHOD 11/06/2024 6:[address] [facility] Platelets 321 130 - 400 K/mcL LAB HEMETOLOGY METHOD 11/06/2024 6:40 AM [facility] MPV 9.0 7.0 - 11.0 FL LAB HEMETOLOGY METHOD 11/06/2024 6:40 AM [facility] NRBC 0.0 <1.0 % LAB HEMETOLOGY METHOD 11/06/2024 6:40 AM [facility] NRBC Absolute 0.00 <0.10 K/mcL LAB HEMETOLOGY METHOD 11/06/2024 6:40 AM [facility] Neutrophils Relative 44.4 % LAB HEMETOLOGY METHOD 11/06/2024 6:40 AM [facility] Lymphocytes Relative 40.2 % LAB HEMETOLOGY METHOD 11/06/2024 6:40 AM [facility] Monocytes Relative 9.9 % LAB HEMETOLOGY METHOD 11/06/2024 6:40 AM [facility] Eosinophils Relative 4.5 % LAB HEMETOLOGY METHOD 11/06/2024 6:40 AM [facility] Basophils Relative 0.7 % LAB HEMETOLOGY METHOD 11/06/2024 6:40 AM [facility] Immature Granulocytes Relative 0.3 % LAB HEMETOLOGY METHOD 11/06/2024 6:40 AM [facility] Neutrophils Absolute 2.99 1.50 - 7.00 K/mcL LAB HEMETOLOGY METHOD 11/06/2024 6:40 AM [facility] Lymphocytes Absolute 2.71 1.00 - 5.00 K/mcL LAB HEMETOLOGY METHOD 11/06/2024 6:40 AM [facility] Monocytes Absolute 0.67 0.20 - 1.00 K/mcL LAB HEMETOLOGY METHOD 11/06/2024 6:[address] [facility] Eosinophils Absolute 0.30 0.00 - 0.50 K/[facility] LAB HEMETOLOGY METHOD 11/06/2024 6:[address] [facility] Basophils Absolute 0.05 0.00 - 0.20 K/[facility] LAB HEMETOLOGY METHOD 11/06/2024 6:[address] [facility] Immature Granulocytes Absolute 0.02 0.00 - 0.03 K/[facility] LAB HEMETOLOGY METHOD 11/06/2024 6:[address] [facility] Blood Venous blood specimen / Unknown Venipuncture / Unknown 11/06/2024 6:29 AM EDT 11/06/2024 6:35 AM EDT Arianna Martinez MD LAB BLOO D ORDERABLES Final Result [facility] [address] [place] [address], [place] [phone] * SST tube (11/06/2024 6:27 AM EDT) Extra Tube Hold for add-ons. 11/06/2024 8:[address] [facility] Comment:Auto resulted. Blood Venous blood specimen / Unknown 11/06/2024 6:27 AM EDT 11/06/2024 6:36 AM EDT us Arianna Martinez MD LAB BLOO D ORDERABLES Final Result [facility] [address] [place] [address], [place] [phone] * CT Abdomen Pelvis w Contrast (11/05/2024 2:06 AM EDT) Anatomical Region Laterality Modality Body Computed Tomogra phy 11/05/2024 3:05 AM EDT Impressions 11/05/2024 3:05 AM EDT 1. Prominent fluid-filled endometrial cavity, most commonly physiologic. Otherwise unremarkable CT abdomen pelvis. No acute abdominopelvic findings. This document has been electronically signed by: Ruben Carpio MD on 11/05/2024 03:05:38 Narrative 11/05/2024 3:05 AM EDT INDICATION: Abdominal pain, fever CT abdomen and pelvis with contrast Comparison: None provided Findings: No consolidation or effusion. The gallbladder and solid organs are within normal limits. No renal stones. No bowel obstruction, pneumoperitoneum, or pneumatosis. Oral contrast is seen throughout the stomach and small bowel. Stool-filled colon. Normal appendix. Prominent fluid-filled endometrial cavity. Otherwise unremarkable pelvic structures. The bones are intact. Procedure Note Ruben Carpio - 11/05/2024 INDICATION: Abdominal pain, fever CT abdomen and pelvis with contrast Comparison: None provided Findings: No consolidation or effusion. The gallbladder and solid organs are within normal limits. No renal stones. No bowel obstruction, pneumoperitoneum, or pneumatosis. Oral contrast is seen throughout the stomach and small bowel. Stool-filled colon. Normal appendix. Prominent fluid-filled endometrial cavity. Otherwise unremarkable pelvic structures. The bones are intact. IMPRESSION: 1. Prominent fluid-filled endometrial cavity, most commonly physiologic. Otherwise unremarkable CT abdomen pelvis. No acute abdominopelvicfindings. This document has been electronically signed by: Ruben Carpio MD on 11/05/2024 03:05:38 us Arianna Martinez MD IMG CT P ROCEDURES Final Result * [id number], Influenza A and B qualitative RT-PCR (11/04/2024 11:24 PM EDT) Influenza A PCR Not Detected Not Detected LAB MICROBIOLOGY METHOD 11/05/2024 12:[address] [facility] Influenza B PCR Not Detected Not Detected LAB MICROBIOLOGY METHOD 11/05/2024 12:[address] [facility] SARS COV-2 Not Detected Not Detected LAB MICROBIOLOGY METHOD 11/05/2024 12:[address] [facility] Swab Oropharyngeal structure / Unknown Non-blood Collection / Unknown 11/04/2024 11:24 PM EDT 11/04/2024 11:[address] [facility] - 11/05/2024 12:21 AM EDT Disclaimer: Testing was performed using the [employer] GeneXpert Xpress SARS-CoV-2 _Flu_RSV PLUS PCR assay. The manner in which this information is used to guide patient care is the responsibility of the healthcare provider. Results should be correlated with the clinical history, epidemiological data, and other data available to the clinician evaluating the patient. Negative results do not preclude infection. This test has been authorized by the FDA under an Emergency Use Authorization (EUA). This test is only authorized for the duration of time the declaration that circumstances exist justifying the authorization of the emergency use of in vitro diagnostic tests for detection of SARS-CoV-2 virus and/or diagnosis of COVID-19 infection under section 564 (b) (1) of the Act, 21 U.S.C 360bbb-3 (b) (1), unless the authorization is terminated or revoked sooner. Reference Range: Not Detected Fact sheet for Healthcare providers can be found at https://www.fda.gov/media/094825/download. Fact sheet for Healthcare patients can be found at https://www.fda.gov/media/232027/download. us Arianna Martinez MD LAB MICROBIOLOGY - GENERAL ORDERABLES Final Result [facility] [address] [place] [address], * XR Chest 1 View (11/04/2024 11:18 PM EDT) Anatomical Region Laterality Modality Body Radiographic Alexa ging 11/05/2024 8:28 AM EDT Impressions 11/05/2024 8:28 AM EDT Normal chest radiographs. -------- FINAL REPORT -------- Dictated By: Miller Price Dictated Date: 11/05/2024 08:28 ET Assigned Physician: Miller Price Reviewed and Electronically Signed By: Miller Price Signed Date: 11/05/2024 08:28 ET Workstation ID: [id number] Transcribed By: Self Edit Transcribed Date: 11/05/2024 08:28 ET Narrative 11/05/2024 8:28 AM EDT PROCEDURE: AP chest radiograph. HISTORY: Abdominal pain, fever. COMPARISON: None. FINDINGS: The heart, mediastinum, lungs, pleural spaces, and bony thorax are normal. Procedure Note Miller Price MD - 11/05/2024 PROCEDURE: AP chest radiograph. HISTORY: Abdominal pain, fever. COMPARISON: None. FINDINGS: The heart, mediastinum, lungs, pleural spaces, and bony thorax arenormal. IMPRESSION: Normal chest radiographs. -------- FINAL REPORT -------- Dictated By: Miller Price Dictated Date: 11/05/2024 08:28 ET Assigned Physician: Miller Price Reviewed and Electronically Signed By: Miller Price Signed Date: 11/05/2024 08:28 ET Workstation ID: [id number] Transcribed By: Self Edit Transcribed Date: 11/05/2024 08:28 ET us Arianna Martinez MD IMG XR P ROCEDURES Final Result * (ABNORMAL) Urinalysis with reflex microscopic and culture (11/04/2024 11:07 PM EDT) [facility] Specific [place] Urine 1.030 1.003 - 1.030 LAB URINALYSIS - AUTOMATED METHOD 11/04/2024 11:[address] [facility] pH, Urine 6.5 5.0 - 8.0 pH LAB URINALYSIS - AUTOMATED METHOD 11/04/2024 11:47 PM [facility] Leukocytes, Urine Moderate(A) Negative LAB URINALYSIS - AUTOMATED METHOD 11/04/2024 11:47 PM [facility] Nitrite, Urine Negative Negative LAB URINALYSIS - AUTOMATED METHOD 11/04/2024 11:47 PM [facility] Protein, Urine Trace <=Trace mg/dL LAB URINALYSIS - AUTOMATED METHOD 11/04/2024 11:47 PM [facility] Glucose, Urine Negative Negative mg/dL LAB URINALYSIS - AUTOMATED METHOD 11/04/2024 11:47 PM [facility] Ketones, Urine Trace(A) Negative mg/dL LAB URINALYSIS - AUTOMATED METHOD 11/04/2024 11:47 PM [facility] Urobilinogen , Urine 1.0 0.2 - 1.0 mg/dL LAB URINALYSIS - AUTOMATED METHOD 11/04/2024 11:47 PM [facility] Bilirubin, Urine Negative Negative LAB URINALYSIS - AUTOMATED METHOD 11/04/2024 11:47 PM [facility] Blood, Urine Negative Negative LAB URINALYSIS - AUTOMATED METHOD 11/04/2024 11:47 PM [facility] RBC, Urine 4.8(H) 0 - 4 /HPF LAB URINALYSIS - AUTOMATED METHOD 11/04/2024 11:47 PM [facility] WBC, Urine 50.9(H) 0 - 4 /HPF LAB URINALYSIS - AUTOMATED METHOD 11/04/2024 11:47 PM [facility] Squamous Epithelial, Urine 40 0 - 60 /LPF LAB URINALYSIS - AUTOMATED METHOD 11/04/2024 11:47 PM [facility] Bacteria, Urine Negative Negative /HPF LAB URINALYSIS - AUTOMATED METHOD 11/04/2024 11:47 PM [facility] Hyaline Casts, Urine 6.8(H) 0 - 3 /LPF LAB URINALYSIS - AUTOMATED METHOD 11/04/2024 11:[address] [facility] Urine Urine specimen obtained by clean catch procedure / Unknown Non-blood Collection / Unknown 11/04/2024 11:07 PM EDT 11/04/2024 11:29 PM EDT Arianna Martinez MD LAB URIN E ORDERABLES Final Result [facility] [address] [place] [address], [place] [phone] * [place] urine culture tube (11/04/2024 11:07 PM EDT) Extra Tube Hold for add-ons. 11/05/2024 1:[address] [facility] Comment:Auto resulted. Urine Urine specimen obtained by clean catch procedure / Unknown Non-blood Collection / Unknown 11/04/2024 11:07 PM EDT 11/04/2024 11:29 PM EDT us Arianna Martinez MD LAB URIN E ORDERABLES Final Result [facility] [address] [place] [address], [place] [phone] * Culture urine (11/04/2024 11:07 PM EDT) Culture, Urine <10,000 cfu/ml, insignificant count, no further workup. 11/06/2024 10:[address] [facility] Urine Urine specimen obtained by clean catch procedure / Unknown Non-blood Collection / Unknown 11/04/2024 11:07 PM EDT 11/04/2024 11:47 PM EDT Arianna Martinez MD LAB MICROBIOLOGY - GENERAL ORDERABLES Final Result Performing Organization Address [facility]/ZIP Co de Phone Number [facility] [address] [place] [address], [place] [phone] * Culture blood (11/04/2024 10:59 PM EDT) Culture, Blood No growth at 5 days LAB MICROBIOLOGY METHOD 11/10/2024 7:[address] [facility] Blood Venous blood specimen / Unknown Venipuncture / Unknown 11/04/2024 10:59 PM EDT 11/04/2024 11:34 PM EDT Arianna Martinez MD LAB MICROBIOLOGY - GENERAL ORDERABLES Final Result Performing Organization Address [facility] Co de Phone Number [facility] [address] [place] [address], [place] [phone] * Type and screen (11/04/2024 10:59 PM EDT) Only the most recent of2 resultswithin the time period is included. ABO Group O 11/05/2024 12:[address] [facility] Rh Type Positive 11/05/2024 12:[address] [facility] Antibody Screen Negative 11/05/2024 12:[address] [facility] Blood Venous blood specimen / Unknown Venipuncture / Unknown 11/04/2024 10:59 PM EDT 11/04/2024 11:33 PM EDT Arianan Martinez MD LAB BLOO D BANK TEST ORDERABLES Final Result Performing Organization Address City/[facility]/ZIP Co de Phone Number [facility] [address] [place] [address], * Comprehensive metabolic panel (11/04/2024 10:59 PM EDT) Sodium 137 133 - 145 mmol/L LAB CHEMISTRY METHOD 11/05/2024 12:05 AM [facility] Potassium 4.1 3.5 - 5.5 mmol/L LAB CHEMISTRY METHOD 11/05/2024 12:05 AM [facility] Chloride 105 96 - 110 mmol/L LAB CHEMISTRY METHOD 11/05/2024 12:05 AM [facility] CO2 28 21 - 32 mmol/L LAB CHEMISTRY METHOD 11/05/2024 12:05 AM [facility] Anion Gap 4 3 - 11 LAB CHEMISTRY METHOD 11/05/2024 12:05 AM [facility] Glucose 87 70 - 100 mg/dL LAB CHEMISTRY METHOD 11/05/2024 12:05 AM [facility] BUN 18 5 - 25 mg/dL LAB CHEMISTRY METHOD 11/05/2024 12:05 AM [facility] Creatinine 1.09 0.50 - 1.10 mg/dL LAB CHEMISTRY METHOD 11/05/2024 12:05 AM [facility] eGFR 71 >=60 mL/min/1. 73m2 LAB CHEMISTRY METHOD 11/05/2024 12:05 AM [facility] Comment:Calculation based on the Chronic Kidney Disease Epidemiology Collaboration (CKD-EPI) equation refit without adjustment for race. BUN/Creatinine Ratio 16.5 LAB CHEMISTRY METHOD 11/05/2024 12:05 AM [facility] Calcium 9.5 8.5 - 10.5 mg/dL LAB CHEMISTRY METHOD 11/05/2024 12:05 AM [facility] AST (SGOT) 27 10 - 42 unit/L LAB CHEMISTRY METHOD 11/05/2024 12:[address] [facility] ALT (SGPT) 23 10 - 60 unit/L LAB CHEMISTRY METHOD 11/05/2024 12:[address] [facility] Alkaline Phosphatase 107 42 - 121 unit/L LAB CHEMISTRY METHOD 11/05/2024 12:[address] [facility] Total Protein 7.9 6.0 - 8.0 g/dL LAB CHEMISTRY METHOD 11/05/2024 12:[address] [facility] Albumin 3.6 3.2 - 5.0 g/dL LAB CHEMISTRY METHOD 11/05/2024 12:[address] [facility] Total Bilirubin 0.3 0.0 - 1.4 mg/dL LAB CHEMISTRY METHOD 11/05/2024 12:[address] [facility] Blood Venous blood specimen / Unknown Venipuncture / Unknown 11/04/2024 10:59 PM EDT 11/04/2024 11:33 PM EDT us Arianna Martinez MD LAB BLOO D ORDERABLES Final Result [facility] [address] [place] [address], [place] [phone] * External Ultrasound Report (10/20/2024) Anatomical Region Laterality Modality Ultrasound us Provider Onbase [facility] US PROCEDURES Final Resul t * (ABNORMAL) Complete blood count (10/18/2024 5:08 PM EDT) WBC 12.9(H) 4.8 - 10.8 K/[facility] HEMETOLOGY METHOD 10/18/2024 5:[address] [facility] RBC 4.10 3.80 - 4.80 M/[facility] HEMETOLOGY METHOD 10/18/2024 5:[address] [facility] Hemoglobin 10.7(L) 11.5 - 16.0 g/dL LAB HEMETOLOGY METHOD 10/18/2024 5:[address] [facility] Hematocrit 33.6(L) 35.0 - 47.0 % LAB HEMETOLOGY METHOD 10/18/2024 5:[address] [facility] MCV 82.6 79.0 - 98.0 FL LAB HEMETOLOGY METHOD 10/18/2024 5:[address] [facility] MCH 26.3(L) 27.0 - 32.0 pcg LAB HEMETOLOGY METHOD 10/18/2024 5:[address] [facility] MCHC 31.8(L) 32.0 - 37.0 g/dL LAB HEMETOLOGY METHOD 10/18/2024 5:[address] [facility] RDW 15.7(H) 11.0 - 15.0 % LAB HEMETOLOGY METHOD 10/18/2024 5:[address] [facility] Platelets 249 130 - 400 K/mcL LAB HEMETOLOGY METHOD 10/18/2024 5:[address] [facility] MPV 9.3 7.0 - 11.0 FL LAB HEMETOLOGY METHOD 10/18/2024 5:[address] [facility] NRBC 0.0 <1.0 % LAB HEMETOLOGY METHOD 10/18/2024 5:[address] [facility] NRBC Absolute 0.00 <0.10 K/mcL LAB HEMETOLOGY METHOD 10/18/2024 5:[address] [facility] Blood Venous blood specimen / Unknown Venipuncture / Unknown 10/18/2024 5:08 PM EDT 10/18/2024 5:13 PM EDT us Rajat South MD LAB BLOOD ORDERABLES Fi nal Result [facility] [address] [place] [address], [place] [phone] * Spinal Block (10/17/2024 8:55 AM EDT) Barry Manuel MD - 10/17/2024 8:55 AM EDT Barry Lomax MD 10/17/2024 9:16 AM Spinal Block Patient location during procedure: OB Start time: 10/17/2024 8:55 AM End time: 10/17/2024 9:00 AM Reason for block: primary anesthetic and at surgeon's request Staffing Performed: anesthesiologist Anesthesiologist: Barry Lomax MD Performed by: Barry Lomax MD Authorized by: Barry Lomax MD Preanesthetic Checklist Completed: patient identified, IV checked, risks and benefits discussed, surgical consent, monitors and equipment checked, pre-op evaluation and timeout performed Spinal Block Patient position: sitting Prep: ChloraPrep and site prepped and draped Patient monitoring: continuous pulse ox Approach: midline Injection technique: single-shot Needle Needle type: Crystal Needle gauge: 25 G Needle length: 3.5 in Medications Administered morphine PF (DURAMORPH) injection 1 mg/mL - intrathecal 0.1 mg - 10/17/2024 8:55:00 AM fentaNYL (SUBLIMAZE) injection 50 mcg/mL - intrathecal 10 mcg - 10/17/2024 8:55:00 AM bupivacaine 0.75%-dextrose 8.25% (SENSORCAINE) intrathecal injection - intrathecal 1.2 mL - 10/17/2024 8:55:00 AM Assessment Sensory level: T4 Additional Notes Positive CSF swirl. Barry Lomax MD ANESTHESIA ORDERABLES Edited Result - Final * Treponema pallidum antibody with reflex to RPR and particle agglutination (10/17/2024 7:14 AM EDT) T. Pallidum Antibodies Negative Negative LAB CHEMISTRY METHOD 10/17/2024 8:[address] [facility] Blood Venous blood specimen / Unknown Venipuncture / Unknown 10/17/2024 7:14 AM EDT 10/17/2024 7:23 AM EDT Arianna Martinez MD LAB BLOO D ORDERABLES Final Result Performing Organization Address City/[facility]/ZIP Co de Phone Number [facility] [address] [place] [address], [place] [phone] * HPV with reflex genotype (04/13/2024 1:48 PM EST) [facility] HPV Negative Negative LAB MICROBIOLOGY METHOD 04/17/2024 3:[address] [facility] Brushing/Spatula Cervix uteri structure / Unknown 04/13/2024 1:48 PM EST 04/17/2024 6:14 AM EST us Giovanna Steven MD LAB MOLECULAR DIAGNOSTICS O RDERABLES Final Result Performing Organization Address [facility]/ZIP Co de Phone Number [facility] [address] [place] [address], [place] [phone] * Hepatitis C antibody (04/05/2024 3:21 PM EST) [facility] Hepatitis C Antibody Negative Negative LAB CHEMISTRY METHOD 04/05/2024 7:[address] [facility] Blood Venous blood specimen / Unknown Venipuncture / Unknown 04/05/2024 3:21 PM EST 04/05/2024 3:21 PM EST us Giovanna Steven MD LAB BLOOD ORDERABLES Final Result Performing Organization Address [facility]/ZIP Co de Phone Number [facility] [address] [place] [address], [place] [phone] * HIV 1,2 antibody, p24 antigen with reflex to differentiation (04/05/2024 3:21 PM EST) HIV Combo AB/AG Negative Negative LAB CHEMISTRY METHOD 04/05/2024 7:[address] [facility] Blood Venous blood specimen / Unknown Venipuncture / Unknown 04/05/2024 3:21 PM EST 04/05/2024 3:[address] [facility] - 04/05/2024 7:33 PM EST This assay is a 4th generation assay allowing for earlier detection of HIV infection by detecting the presence of the HIV-1 p24 antigen as well as the traditional antibodies to HIV type 1 (including group O) and type 2. Use of a 4th generation assay is the current CDC recommendation for HIV screening. Giovanna Steven MD LAB BLOOD ORDERABLES Final Result [facility] [address] [place] [address], from Last 3 Months or Most Recently Relevant to Health Maintenance Insurance MEDICAID - [place] Advance Directives * Full Code - Default (Latest Code Status on File) Date Activated Date Inactivated Comments 11/05/2024 3:29 AM 11/06/2024 11:56 AM This is ord er is used when code status has not been discussed with the patient, or code status is otherwise unknown/unconfirmed To update the patient's code status, place a code status order. Do not modify or discontinue any currently active code status orders. * Full Code - Default Date Activated Date Inactivated Comments 11/04/2024 10:49 PM 11/05/2024 3:29 AM This is orde r is used when code status has not been discussed with the patient, or code status is otherwise unknown/unconfirmed To update the patient's code status, place a code status order. Do not modify or discontinue any currently active code status orders. * Full Code - Default Date Activated Date Inactivated Comments 10/17/2024 10:25 AM 10/19/2024 4:30 PM This is ord er is used when code status has not been discussed with the patient, or code status is otherwise unknown/unconfirmed To update the patient's code status, place a code status order. Do not modify or discontinue any currently active code status orders. * Full Code - Default Date Activated Date Inactivated Comments 10/17/2024 6:41 AM 10/17/2024 9:42 AM This is orde r is used when code status has not been discussed with the patient, or code status is otherwise unknown/unconfirmed To update the patient's code status, place a code status order. Do not modify or discontinue any currently active code status orders. Care Teams Lacquer Sprayer Relationship Specialty Start Date End Date Elda Bowens MD [address] [place] [address] PCP - General 12/30/22
[2025-01-01 13:56] LABS: Cholesterol 147 mg/dL (<200); HDL Cholesterol 40 mg/dL (>40); Triglycerides 89 mg/dL (<150)
[2025-01-02 09:49] LABS: Iron 79 mcg/dL (30-160); Percent Iron Saturation 25 % (15-50); Total Iron Binding Capacity 321 mcg/dL (228-428); Unsaturated Iron Binding 242 ug/dL
[2025-01-04 05:40] LABS: TS Negative Control Passed; TS Panel A 1; TS Panel B 1; TS Positive Control Passed; TSpotTB Negative (Negative)
== END 2025-01-01 11:21 | disposition home or self-care (01) ==
LOC: HO.HMGCLDS 11:20
PROVIDERS: PCP Internal Medicine; Visit Provider Internal Medicine
DX: Z11.1 Encounter for screening for respiratory tuberculosis (principal); Z13.220 Encounter for screening for lipoid disorders; Z13.1 Encounter for screening for diabetes mellitus; Z13.0 Encounter for screening for diseases of the blood and blood-forming organs and certain disorders involving the immune mechanism; R53.83 Other fatigue
CPT/HCPCS: 36415; 80061; 82306; 82947; 83540; 85014; 85018; 86481

== ENCOUNTER 2025-01-03 14:34 | Outpatient (AMB) | payer OTHER, SELFPAY ==
--- NOTE | 2025-01-03 14:41 | MHC.PC.OV ---
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 She goes to her own OBGYN, Dr. Jones for her routine Pap and pelvic exam, last cervical cancer screening was done 04/13/2024 which came back with benign findings. 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 Had a T spot test done with negative results. She has been feeling well with no complaints at present time. Latest fasting labs showed normal fasting glucose, lipids, vitamin-D levels and normal CBC and iron profile [facility] Medical History Epigastric pain Choledocholithiasis Dysmenorrhea Family history of hypothyroidism Vitiligo Injection site reaction Surgical History Hx laparoscopic cholecystectomy Hx of section Family History Mother Hypertension Father No problems noted. Brother No problems noted. Sister No problems noted. Social History Housing: House Alcohol intake: never Patient Tobacco Use Status: Never used Tobacco e-Cigarette/Vaping Use: Never Used service: No Current occupational status: unemployed Cognitive needs: No Hearing needs: No Vision needs: No Female Reproductive History Menstrual Other: Still but supplementing with formula Questionnaire PHQ-9 Over the last 2 weeks, how often have you been bothered by any of the following problems? 1. Little interest or pleasure in doing things: not at all 2. Feeling down, depressed, or hopeless: not at all 3. Trouble falling or staying asleep, or sleeping too much: not at all 4. Feeling tired or having little energy: not at all 5. Poor appetite or overeating: not at all 6. Feeling bad about yourself - or that you are a failure or have let yourself or your family down: not at all 7. Trouble concentrating on things, such as reading the newspaper or watching television: not at all 8. Moving or speaking so slowly that other people could have noticed. Or the opposite - being so fidgety or restless that you have been moving around a lot more than usual: not at all 9. Thoughts that you would be better off or of hurting yourself in some way: not at all Total score: 0 Depression Screening Interpretation: Negative Depression Screening Done: Yes 92287 - PHQ-9 Billing: Yes Source: Developed by Drs. Omero Landry, Amanda Hammonds, Arben Moses and colleagues, with an educational chris from [employer]. Thrive Questionnaire Date Thrive assessed: 01/03/25 I am a: Patient What is your living situation today?: I have a steady place to live Within the past 12 months, did the food you bought not last and you didn't have the money to get more?: Never true Within the past 12 months, did you worry whether your food would run out before you got money to buy more?: Never true Do you have trouble paying for medicines?: No Do you have trouble getting transportation to medical appointments?: No Do you have trouble paying your heating and electricity bill?: No Do you have trouble taking care of your child, family member or friend?: No Do you have trouble with day-to-day activities such as bathing, preparing meals, shopping, managing finances, etc.?: No Are you currently unemployed and looking for a job?: Yes Are you interested in more education?: No THRIVE Score: 0 AUDIT C Alcohol Use Questionnaire (AUDIT-C) 1. How often do you have a drink containing alcohol?: Never Total Score: 0 Score Reviewed/Action Taken: Yes PAM-7 AMB Questionnaire PAM-7 Date PAM - 7 assessed: 01/03/25 Feeling nervous, anxious, or on edge: 0 = Not at all Not being able to stop or control worryin = Not at all Worrying too much about different things: 0 = Not at all Trouble relaxin = Not at all Being so restless that it is hard to sit still: 0 = Not at all Becoming easily annoyed or irritable: 0 = Not at all Feeling afraid as if something awful might happen: 0 = Not at all Total PAM-7 score (0-4 normal; 5-9 mild; 10-14 moderate; 15-21 severe): 0 Source: Developed by Drs. Omero Landry, Amanda Hammonds, Arben Moses and colleagues, with an educational chris from [employer]. PAM-7 Assessment Billing PAM-7 Assessment Tool: PAM-7 Assessment 71100 Review of Systems Const Denies body aches, Denies fatigue, Denies fever(s), Denies headache(s) and Denies weakness Eyes Denies change in vision, Denies eye discharge and Denies itchy eyes ENT Denies dizziness, Denies headache(s), Denies nasal congestion, Denies nasal discharge and Denies sore throat Card Denies chest pain, Denies lightheadedness, Denies palpitations and Denies dyspnea Resp Denies chest congestion, Denies cough, Denies dyspnea and Denies wheezing GI Denies change in bowel habits Denies urinary frequency, Denies dysuria and Denies urinary urgency Musc Reports no additional complaints Skin/Breast Denies lesions and Denies rash Neuro Denies dizziness, Denies headache(s) and Denies weakness Psych Reports no additional complaints Endo Denies fatigue, Denies polydipsia, Denies polyuria and Denies palpitations Rm/Lymph Denies easy bruising Aller/Immun Denies itchy eyes, Denies seasonal rhinorrhea and Denies wheezing Physical exam (Primary Care) Vital Signs: Last Vital Signs Temp 98.0 F 01/03/25 14:48 Pulse 80 01/03/25 14:48 BP 90/60 01/03/25 14:48 Pulse Ox 98 01/03/25 14:48 Oxygen Delivery Method Room Air 01/03/25 14:48 BMI result Body Mass Index 28.1 Tobacco/Smoking Status: Tobacco use Status Tobacco use date assessed 01/03/25 01/03/25 14:43 Patient Tobacco Use Status Never used Tobacco 01/03/25 14:43 e-Cigarette/Vaping Use Never Used 01/03/25 14:43 PHQ-9: PHQ-9 Score PHQ-9: Total score 0 01/03/25 15:34 Depression Screening Interpretation: Negative Thrive Assessment: Date of Thrive Assessment Date Thrive assessed 01/03/25 01/03/25 15:34 Const General: comfortable, no acute distress, alert and Physically active Nutritional Appearance: average body habitus Orientation/consciousness: patient oriented x3 HENMT Ears: hearing grossly normal bilaterally, external ears normal, TM's normal bilaterally and EAC's normal General nose exam: Normal external nose present and No nasal discharge present Face and sinus: Yes face symmetric Mouth: Normal oral and palatal mucosa present, tongue normal, oropharynx normal and moist mucous membranes Eyes General: appearance normal, both eyes and all related structures Neck Neck: Yes full ROM, Yes no lymphadenopathy and Yes supple Thyroid: Thyroid normal Chest Chest palpation & inspection: normal inspection of the chest Breast/axilla inspection: normal inspection of the breasts Breast/axilla palpation: normal palpation of the breasts Resp Auscultation: clear to auscultation bilaterally Cardio Palpation: normal PMI Rate: regular rate Rhythm: regular rhythm Heart sounds: S1 normal heart sound present and S2 normal heart sound present GI Palpation (GI): Soft to palpation, nontender, no guarding and no masses General: Yes no CVA tenderness and Yes deferred (Sees her OBGYN in [place]) Back/Spine/Pelvis Back: no CVA tenderness and No back tenderness Skin General skin exam: no rashes or lesions noted Neuro General: patient oriented x3, gait normal, tone normal, moves all extremities, Normal light touch and pain sensation, no focal motor deficits and CN's II-XI intact bilaterally Extrem General: Yes full ROM, Yes no joint enlargement, Yes no clubbing, cyanosis or edema, Yes no pedal edema, Yes no calf tenderness and Yes normal gait Psych Appearance: grossly normal and well kempt Mental Status: mental status grossly normal Speech and movement: Normal speech and movement present Affect: normal affect Attitude: cooperative Results Reviewed Results Reviewed: Name: Milana Lees Age/Sex: 29/F [facility] 1995 [id number] [id number] Attend Dr: Elda Bowens MD Re01/01/25 Status: DEP REF Location: [facility] Disch: SPEC : [id number] NELLA: 01/01/25 STATUS: COMP REQ : [id number] RECD: 01/01/[address]: Elda Bowens MD COMP: 01/01/25 ENTERED: 01/01/[address]: ORDERED: Glu Fasting, IRON PROF, Lipid Panel, Vitamin D 25-OH Test Result Flag Reference FBS 87 60-99 mg/dL Iron 79 30-160 mcg/dL TIBC 321 228-428 mcg/dL Saturation 25 15-50 % UIBC 242 ug/dL Triglyceride 89 <150 mg/dL Desirable Triglyceride: less than 150 mg/dL Borderline High Triglyceride 150-199 mg/dL High Triglyceride: 200-499 mg/dL Very High Triglyceride: greater than or equal to 5OO mg/dL Cholesterol 147 <200 mg/dL Desirable Cholesterol: less than 200 mg/dL Borderline High Cholesterol: 200-239 mg/dL High Cholesterol: greater than 239 mg/dL LDL Calculated 90 <100 mg/dL Desirable LDL: less than 100 mg/dL Near Optimal/Above Optimal LDL: 110-129 mg/dL Borderline High LDL: 130-159 mg/dL High LDL: 160-189 mg/dL Very High LDL: greater than or equal to 190 mg/dL HDL 40 L >40 mg/dL Desirable HDL: greater than 40 mg/dL Note: This HDL assay may give artificially low results in patients with liver disease. Vitamin D 25-OH 31.6 >30 ng/mL Health Based Reference Values* < 20 ng/mL Deficient 20-30 ng/mL Insufficient > 30 ng/mL Sufficient Laboratory Tests 01/01/25 11:44 TB Test (T-Spot) Com Negative Coding Level of Care Code Est Pt Prev Care 18-39y(16087) Diagnoses Annual visit for general adult medical examination with abnormal findings Z00.01 Additional Codes PAM-7 Assessment Billing - PAM-7 Assessment Tool: PAM-7 Assessment 51722 ([id number]) PHQ-9 - 75528 - PHQ-9 Billing: Yes ([id number]) Assessment & Plan Assessment & Plan (1) Annual visit for general adult medical examination with abnormal findings: Code(s): Z00.01 - Encounter for general adult medical examination with abnormal findings Plan: Discuss recent lab results with patient.. Recommended dental visit every 6 months and regular eye exams, at least every 2 years. Take adequate calcium in diet and vitamin-D 3 at 2000 IU per cap once a day, in addition to weight-bearing exercises to help maintain good muscle tone and weight control. Instructed to do self-breast exam, and recommended to get yearly mammogram, starting at age 40. Up-to-date with her cervical cancer screening, sees Dr. Jones . Reminded to get her yearly flu shot, up-to-date with her Tdap, does not want to get a COVID vaccine booster
[2025-01-03 14:48] VITALS: BP 90/60; PULSE 80; TEMP 36.7; O2SAT 98; BMI 28.1
== END 2025-01-03 15:35 | disposition home or self-care (01) ==
LOC: HO.HMCC 14:34
PROVIDERS: PCP Internal Medicine; Visit Provider Internal Medicine
DX: Z00.01 Encounter for general adult medical examination with abnormal findings (principal)

== ENCOUNTER → 2025-01-03 14:34 | Outpatient (BNVA) | payer OTHER, SELFPAY | PROVIDERS: PCP Internal Medicine; Visit Provider Internal Medicine | DX: Z00.01 Encounter for general adult medical examination with abnormal findings (principal) | CPT/HCPCS: 96127; 99395 ==

== ENCOUNTER 2025-01-11 12:50 | Outpatient (REF) | payer OTHER, SELFPAY ==
[2025-01-11 16:20] LABS: Iron 47 mcg/dL (30-160); Percent Iron Saturation 15 % (15-50); Total Iron Binding Capacity 308 mcg/dL (228-428); Unsaturated Iron Binding 261 ug/dL
[2025-01-11 16:56] LABS: Folate 13.0 ng/mL (> or = 4.0); Vitamin B12 408 pg/mL (200-900)
== END 2025-01-11 12:51 | disposition home or self-care (01) ==
LOC: HO.HMGCLDS 12:50
PROVIDERS: PCP Internal Medicine; Visit Provider Internal Medicine
DX: Z86.2 Personal history of diseases of the blood and blood-forming organs and certain disorders involving the immune mechanism (principal)
CPT/HCPCS: 36415; 82607; 82746; 83540